=== PATIENT | male | born 1960 | race American Indian/Alaskan Native ===

== ENCOUNTER 2016-07-17 11:01 | Emergency (ER) | payer OTHER ==
[2016-07-17 11:17] VITALS: BP 122/86
--- NOTE | 2016-07-17 12:32 | XRay Report ---
RIGHT ELBOW, 3 views: History: Right elbow pain. The bony architecture is intact without evidence of fracture or dislocation. No significant soft tissue abnormality is seen. Small olecranon spur is noted. IMPRESSION: Normal right elbow.
--- NOTE | 2016-07-17 12:32 | Emergency Department Report ---
ED Fall HPI - General Chief Complaint: Extremity Injury, Upper Stated Complaint: RT SIDE RIBS/ELBOW/LOWER BACK PAIN Time Seen by Provider: 07/17/16 11:27 Source: patient Mode of arrival: Ambulatory - History of Present Illness Initial Comments: patient comes in to the ER today with complaints of Right elbow, right wrist, and lower back pain after a fall yesterday. 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 Denies any LOC, bleeding, or neck pain. MD Complaint: fall -: Sudden, days(s) (1) Place Fall Occurred: other ([employer]) Loss of Consciousness: none Symptoms Prior to Fall: none Location: back, other (right arm) Location - Extremities: Right: Arm, Elbow Severity: moderate Quality: aching Associated Symptoms: denies. denies: headache, neck pain, numbness, chest paint , shortness of breath, abdominal pain, lightheaded, vertigo, confusion - Related Data Previous Rx's Medication Instructions Recorded Last Taken Type Cyclobenzaprine [Flexeril] 10 mg PO BID PRN #20 tablet 07/17/16 Unknown Rx Naproxen [Naprosyn TAB] 500 mg PO BID #20 tablet 07/17/16 Unknown Rx traMADol [Ultram] 50 mg PO Q4HR PRN #30 tablet 07/17/16 Unknown Rx Allergies Allergy/AdvReac Type Severity Reaction Status Date / Time No Known Allergies Allergy Unverified 07/17/16 11:10 ED Review of Systems ROS: Stated complaint: RT SIDE RIBS/ELBOW/LOWER BACK PAIN Other details as noted in HPI Constitutional: denies: chills, fever Eyes: denies: eye pain, eye discharge, vision change ENT: denies: ear pain, throat pain Respiratory: denies: cough, shortness of breath, wheezing Cardiovascular: denies: chest pain, palpitations Endocrine: no symptoms reported Gastrointestinal: denies: abdominal pain, nausea, diarrhea Genitourinary: denies: urgency, dysuria Musculoskeletal: back pain, arthralgia. denies: joint swelling Skin: denies: rash, lesions Neurological: denies: headache, weakness, numbness, paresthesias Psychiatric: denies: anxiety, depression Hematological/Lymphatic: denies: easy bleeding, easy bruising ED Past Medical Hx - Past Medical History Previous Medical History?: No - Surgical History Past Surgical History?: No - Social History Smoking Status: Former Smoker Substance Use Type: Alcohol - Medications Home Medications: Home Medications Medication Instructions Recorded Confirmed Last Taken Type Cyclobenzaprine [Flexeril] 10 mg PO BID PRN #20 tablet 07/17/16 Unknown Rx Naproxen [Naprosyn TAB] 500 mg PO BID #20 tablet 07/17/16 Unknown Rx traMADol [Ultram] 50 mg PO Q4HR PRN #30 tablet 07/17/16 Unknown Rx ED Physical Exam - General Limitations: No Limitations General appearance: alert, in no apparent distress - Head Head exam: Present: atraumatic, normocephalic - Eye Eye exam: Present: normal appearance - ENT ENT exam: Present: mucous membranes moist - Neck Neck exam: Present: normal inspection, full ROM. Absent: tenderness, lymphadenopathy - Respiratory Respiratory exam: Present: normal lung sounds bilaterally. Absent: respiratory distress, wheezes, rales, chest wall tenderness, accessory muscle use, decreased breath sounds - Cardiovascular Cardiovascular Exam: Present: regular rate, normal rhythm. Absent: systolic murmur, diastolic murmur, rubs, gallop - GI/Abdominal GI/Abdominal exam: Present: soft, normal bowel sounds. Absent: tenderness - Rectal Rectal exam: Present: deferred - Extremities Exam Extremities exam: Present: normal inspection - Expanded Upper Extremity Exam Right General: Present: normal inspection. Absent: laceration, abrasion, avulsion Shoulder Exam: Present: normal inspection, full ROM. Absent: deformity Elbow exam: Present: normal inspection, tenderness, pain w/ pronation/supination , tenderness over radial head. Absent: ecchymosis, deformity, dislocation Forearm Wrist exam: Present: normal inspection, tenderness. Absent: swelling, ecchymosis, deformity Hand Wrist exam: Present: normal inspection, tenderness. Absent: swelling, ecchymosis, deformity - Back Exam Back exam: Present: normal inspection, full ROM, tenderness, muscle spasm, paraspinal tenderness. Absent: CVA tenderness (R), CVA tenderness (L), vertebral tenderness - Neurological Exam Neurological exam: Present: alert, oriented X3, CN II-XII intact, normal gait, reflexes normal. Absent: motor sensory deficit - Psychiatric Psychiatric exam: Present: normal affect, normal mood - Skin Skin exam: Present: warm, dry, intact, normal color. Absent: rash ED Course Vital Signs 07/17/16 11:11 Temperature 98.4 F Pulse Rate 73 Respiratory 16 Rate Blood Pressure 122/86 O2 Sat by Pulse 100 Oximetry ED Medical Decision Making - Radiology Data Radiology results: report reviewed, image reviewed X-ray L-spine = NAP, right Elbow = Olecrenon bone spur, NAP right wrist = Degenerative changes, NAP - Medical Decision Making Images reviewed and discussed with patient in room. Despite no fractures noted , patient is very tender in right wrist and placed in right thumb spica splint. Critical care attestation.: If time is entered above; I have spent that time in minutes in the direct care of this critically ill patient, excluding procedure time. ED Disposition Clinical Impression: Low back pain, Fall with injury, Right arm pain Disposition: DISCHARGED TO HOME OR SELFCARE Is pt being admited?: No Does the pt Need Aspirin: No Condition: Good Instructions: Wrist Injury (ED), Elbow Sprain (ED), Low Back Strain (ED) Prescriptions: Cyclobenzaprine [Flexeril] 10 mg PO BID PRN #20 tablet PRN Reason: Muscle Spasm Naproxen [Naprosyn TAB] 500 mg PO BID #20 tablet traMADol [Ultram] 50 mg PO Q4HR PRN #30 tablet PRN Reason: Pain Referrals: PRIMARY CARE, [Primary Care Provider] - 3-5 Days ISAIAS MASCORRO MD [Staff Physician] - 3-5 Days Time of Disposition: 12:44
--- NOTE | 2016-07-17 12:33 | XRay Report ---
LUMBOSACRAL SPINE, 3 VIEWS: History: Back pain Findings: The vertebral bodies, disk spaces and posterior elements are intact. No compression deformity or malalignment. The SI joints are symmetric and unremarkable. Impression: 1. No evidence for acute injury to the lumbar spine.
--- NOTE | 2016-07-17 12:33 | XRay Report ---
RIGHT WRIST, 4 VIEWS: History: Right wrist pain and injury. Routine views demonstrate the carpal bones to be well mineralized with well preserved bony mineralization and interosseous joint spaces. No evidence for fracture, dislocation or ligamentous injury. Mild osteoarthritic changes are noted. The surrounding soft tissues are unremarkable. IMPRESSION: Degenerative changes. No acute process.
== END 2016-07-17 12:55 | disposition home or self-care (01) ==
LOC: ED 11:01
DX: M79.601 Pain in right arm (principal); M54.5 Low back pain; Z87.891 Personal history of nicotine dependence; W19.XXXA Unspecified fall, initial encounter; Y93.89 Activity, other specified; Y99.9 Unspecified external cause status; Y92.89 Other specified places as the place of occurrence of the external cause
CPT/HCPCS: 72100